=== PATIENT | female | born 2000 | race Two or more races ===

== ENCOUNTER → 2022-06-29 | Outpatient (REF) | payer MEDICAID | LOC: M SFHCWAGY 17:21 | PROVIDERS: ATTEND Obstetrics & Gynecology | DX: O26.843 Uterine size-date discrepancy, third trimester (principal) ==

== ENCOUNTER → 2022-07-10 | Outpatient (CLI) | payer MEDICAID ==
[~2022-07-10] MED LIST: PRENTAB9 PO
== END ==
LOC: M WHC 07:53
PROVIDERS: ATTEND Obstetrics & Gynecology
DX: Z36.2 Encounter for other antenatal screening follow-up (principal); Z3A.36 36 weeks gestation of pregnancy

== ENCOUNTER 2022-07-20 13:30 | Inpatient (IN) | payer MEDICAID ==
[~2022-07-20] VITALS: Ht 175.3 cm; Wt 64.5 kg
[2022-07-20 13:46] VITALS: BP 105/57
[2022-07-20] MEDS ORDERED: PRENTAB9 PO (13:50)
[2022-07-20] MEDS ORDERED: LR 1,000 ML IV SCH (14:25)
[2022-07-20] MEDS ORDERED: OXYTOCIN DRIP 30 UNITS in IV 1 EA IV PRN (14:25)
[2022-07-20] MEDS ORDERED: PENICILLIN G POTASSIUM 5 MU IV 5 MU in D5W MINI-BAG PLUS 100 ML IV STA (14:25)
[2022-07-20] MEDS ORDERED: LACTATED RINGER'S 1000 ML IV STA (14:25)
[2022-07-20] MEDS ORDERED: LIDOCAINE 1% MDV 20ML VIAL INFIL PRN (14:25)
[2022-07-20] MEDS ORDERED: OXYTOCIN INJ 10 UNITS/ML VIAL (J2590) IV PRN (14:25)
[2022-07-20] MEDS ORDERED: METHYLERGONOVINE MALEATE 0.2 MG/ML VIAL (J2210) IM PRN (14:25)
[2022-07-20] MEDS ORDERED: TRANEXAMIC ACID INJection 1,000 MG in NS 100 ML IV PRN (14:25)
[2022-07-20 14:44] LABS: HEMOGLOBIN 11.8 g/dl (12.0-15.5); MEAN CORPUSCULAR HEMOGLOBIN 30.1 pg (27.0-33.0); MEAN CORPUSCULAR HGB CONC 34.7 g/dl (32.0-36.5); MEAN CORPUSCULAR VOLUME 86.7 fl (80.0-96.0); PLATELET COUNT, AUTOMATED 283 10^3/uL (150-450); RED BLOOD COUNT 3.92 10^6/uL (4.00-5.40); WHITE BLOOD COUNT 6.4 10^3/uL (4.0-10.0)
[2022-07-20 14:56] VITALS: BP 120/68
[2022-07-20] MEDS ORDERED: MOM 30ML SUSPENSION UDC PO PRN (15:10)
[2022-07-20] MEDS ORDERED: OXYTOCIN DRIP 30 UNITS in IV 1 EA IV SCH (15:10)
[2022-07-20] MEDS ORDERED: RHOGAM 300 MCG (1500 IU) INJ (J2790) IM SCH (15:10)
[2022-07-20] MEDS ORDERED: METHYLERGONOVINE MALEATE 0.2 MG TAB PO PRN (15:10)
[2022-07-20] MEDS ORDERED: ANUSOL HC CREAM 30GM TOP PRN (15:10)
[2022-07-20] MEDS ORDERED: ACETAMINOPHEN TAB 650MG DOSE (2X325MG) PO PRN (15:10)
[2022-07-20] MEDS ORDERED: DOCUSATE SODIUM 100MG CAPSULE PO PRN (15:10)
[2022-07-20] MEDS ORDERED: IBUPROFEN 600MG TAB PO PRN (15:10)
[2022-07-20] MEDS ORDERED: DIBUCAINE 1% OINTMENT 30GM TOP PRN (15:10)
[2022-07-20 15:12] VITALS: BP 116/72
[2022-07-20 15:27] VITALS: BP 117/73
[2022-07-20] MEDS: IBUPROFEN 800 MG TAB PO PRN (15:29)
[2022-07-20 15:42] VITALS: BP 116/73
[2022-07-20 16:00] VITALS: BP 103/60
[2022-07-20] MEDS ORDERED: PENICILLIN G POTASSIUM IV 2.5 MU in IV 1 EA IV SCH (18:25)
[2022-07-21] MEDS: IBUPROFEN 800 MG TAB PO PRN (05:24)
[2022-07-21 06:00] VITALS: BP 115/69
[2022-07-21] MEDS: PRENATAL VITAMINS CHEWABLE TABLET PO SCH (08:32)
[2022-07-21] MEDS ORDERED: BOOSTRIX/ADACEL VACCINE (DIPHTH/PERTUSS/ACELL/TETANUS) 0.5ML SYR IM.IMMUN ONE (11:00)
[2022-07-21 18:00] VITALS: BP 110/62
[2022-07-21] MEDS: ACETAMINOPHEN 500 MG TAB PO PRN (18:30)
[2022-07-22 05:29] VITALS: BP 109/58
[2022-07-22] MEDS: PRENATAL VITAMINS CHEWABLE TABLET PO SCH (08:46)
[2022-07-22] MEDS: ACETAMINOPHEN 500 MG TAB PO PRN (08:46)
[2022-07-22] MEDS ORDERED: MEASLES,MUMPS,RUBELLA VACCINE INJ (MMR-II) (90707) SC.IMMUN ONE (09:00)
== END 2022-07-22 20:56 | disposition home or self-care (01) | DRG 560 ==
LOC: M LDO 13:30 → M LDI 14:13 → M OBS 16:43
PROVIDERS: ADMIT Obstetrics & Gynecology; ATTEND Obstetrics & Gynecology
PROC: 10E0XZZ Delivery of Products of Conception, External Approach (ICD-10-PCS; principal; 2022-07-20)
DX: O80 Encounter for full-term uncomplicated delivery (principal); Z37.0 Single live birth; Z3A.39 39 weeks gestation of pregnancy